=== PATIENT | female | born 1945 | race Caucasian/White ===

== ENCOUNTER → 2018-01-21 | Outpatient (CLI) | payer MEDICARE, OTHER ==
[~2018-01-21] MED LIST: AMLO2.5T PO; ATEN100T PO; CARB200T3 PO; CLON1TAB PO; ESCI10TA PO; HYDR25TA6 PO; LOSA50TA2 PO; TIZA4TAB PO
== END | disposition home or self-care (01) ==
LOC: CFH 10:31
PROVIDERS: ATTEND Otolaryngology
DX: J32.0 Chronic maxillary sinusitis (principal); J34.89 Other specified disorders of nose and nasal sinuses
CPT/HCPCS: 70486

== ENCOUNTER → 2020-02-23 | Outpatient (CLI) | payer MEDICARE, OTHER ==
[~2020-02-23] MED LIST changes: -AMLO2.5T PO; +AMLO2.5T5 PO; -TIZA4TAB PO; +TIZA4TAB2 PO
== END | disposition home or self-care (01) ==
LOC: CFH 08:54
PROVIDERS: ATTEND Nurse Practitioner
DX: E04.1 Nontoxic single thyroid nodule (principal)
CPT/HCPCS: 76536